=== PATIENT | male | born 1975 | race Asian ===

== ENCOUNTER 2016-07-25 13:27 | Outpatient (CLI) | payer OTHER ==
[~2016-07-25 13:27] MED LIST: ALIGN4 MG OR; AMOXICILLIN250 M2 PO; BIAXIN500 MG OR; METO50TA27 PO; PREVACID30 MG OR
[2016-07-25 14:01] LABS: PLATELET COUNT 228 K/uL (142-355)
[2016-07-25 14:41] LABS: POTASSIUM 3.7 mmol/L (3.6-5.2); SODIUM 140 mmol/L (136-145)
== END 2016-07-25 20:08 | disposition home or self-care (01) ==
LOC: LABW 13:27
PROVIDERS: Family Medicine
DX: R10.9 Unspecified abdominal pain (principal); E11.9 Type 2 diabetes mellitus without complications; K21.9 Gastro-esophageal reflux disease without esophagitis
CPT/HCPCS: 36415; 80053; 81000; 83036; 85027; 86318

== ENCOUNTER 2016-07-26 14:19 | Outpatient (CLI) | payer OTHER | END 2016-07-26 19:46 | disposition home or self-care (01) | LOC: US 14:19 | DX: R10.9 Unspecified abdominal pain (principal); E11.9 Type 2 diabetes mellitus without complications | CPT/HCPCS: 82272 ==

== ENCOUNTER 2016-10-12 22:07 | Emergency (ER) | payer OTHER ==
[~2016-10-12] VITALS: Ht 175.3 cm; Wt 104.3 kg
[2016-10-13 00:16] VITALS: BP 148/89; TEMP 99
== END 2016-10-13 00:16 | disposition home or self-care (01) ==
LOC: ED 22:07
DX: B34.9 Viral infection, unspecified (principal); A08.4 Viral intestinal infection, unspecified
CPT/HCPCS: 96372; 99283; J1885; J2550

== ENCOUNTER 2019-02-27 22:08 | Emergency (ER) | payer OTHER ==
[~2019-02-27] VITALS: Ht 175.3 cm; Wt 109.3 kg
[~2019-02-27 22:08] MED LIST changes: +RANI150T78 PO
[2019-02-27 23:54] VITALS: BP 136/75; TEMP 98.3
== END 2019-02-27 23:54 | disposition home or self-care (01) ==
LOC: ED 22:08
DX: S39.012A Strain of muscle, fascia and tendon of lower back, initial encounter (principal); S20.212A Contusion of left front wall of thorax, initial encounter; W18.39XA Other fall on same level, initial encounter; Y92.098 Other place in other non-institutional residence as the place of occurrence of the external cause
CPT/HCPCS: 96372; 99283; J1885

== ENCOUNTER 2020-02-11 13:33 | Emergency (ER) | payer OTHER ==
[~2020-02-11] VITALS: Ht 175.3 cm; Wt 108.0 kg
[2020-02-11] MEDS ORDERED: CARV3.12 PO (14:00)
[2020-02-11] MEDS ORDERED: OMEP40CA PO (14:01)
[2020-02-11 14:55] LABS: PLATELET COUNT 193 K/uL (142-355)
[2020-02-11 15:10] LABS: POTASSIUM 3.6 mmol/L (3.6-5.2); SODIUM 142 mmol/L (136-145)
[2020-02-11 15:14] LABS: PARTIAL THROMBOPLASTIN TIME 26.9 SECONDS (24.5-33.6)
[2020-02-11 16:45] VITALS: BP 137/73; TEMP 98.7
== END 2020-02-11 16:45 | disposition home or self-care (01) ==
LOC: ED 13:33
PROVIDERS: Family Medicine
DX: R00.1 Bradycardia, unspecified (principal); R07.89 Other chest pain; I10 Essential (primary) hypertension; K21.9 Gastro-esophageal reflux disease without esophagitis
CPT/HCPCS: 80053; 81000; 84484; 85027; 85379; 85610; 85730; 93005; 99283

== ENCOUNTER 2020-02-21 14:15 | Outpatient (CLI) | payer OTHER ==
[~2020-02-21 14:15] MED LIST changes: +CARV3.12 PO; +OMEP40CA PO
[2020-02-22] MEDS ORDERED: LISI10TA11 PO ×2 (05:07)
== END 2020-02-21 20:46 | disposition home or self-care (01) ==
LOC: US 14:15
DX: R10.31 Right lower quadrant pain (principal)

== ENCOUNTER 2020-02-21 14:55 | Observation (INO) | payer OTHER ==
[~2020-02-21] VITALS: Ht 175.3 cm; Wt 108.0 kg
[2020-02-21 15:00] VITALS: BP 129/74; TEMP 99.2
[2020-02-21 15:55] LABS: PLATELET COUNT 208 K/uL (142-355)
[2020-02-21 16:00] VITALS: BP 123/77
[2020-02-21 16:04] LABS: POTASSIUM 3.4 mmol/L (3.6-5.2)
[2020-02-21 17:00] VITALS: BP 133/86
[2020-02-21 18:28] VITALS: BP 144/84
[2020-02-21 22:41] VITALS: BP 150/74; TEMP 101.8; Ht 175.3 cm; Wt 108.0 kg
[2020-02-22 00:08] VITALS: BP 115/65; TEMP 98.8
[2020-02-22] MEDS ORDERED: LISI10TA11 PO ×2 (05:07)
[2020-02-22 05:51] LABS: PLATELET COUNT 189 K/uL (142-355)
[2020-02-22 06:02] LABS: POTASSIUM 4.2 mmol/L (3.6-5.2)
[2020-02-22 08:00] VITALS: BP 117/66; TEMP 98.9
[2020-02-22 12:00] VITALS: BP 122/68; TEMP 98
== END 2020-02-22 16:25 | disposition home or self-care (01) ==
LOC: ED 14:55 → MED/SURG 18:15
PROVIDERS: Family Medicine; ADMIT Family Medicine
DX: E86.0 Dehydration (principal); E87.6 Hypokalemia; E87.1 Hypo-osmolality and hyponatremia
CPT/HCPCS: 36415; 80053; 85027; 87502; 87651; 96360; 96365; 96366; 99220; 99284; G0378

== ENCOUNTER 2021-11-16 09:59 | Emergency (ER) | payer BC ==
[~2021-11-16] VITALS: Ht 175.3 cm; Wt 113.4 kg
[~2021-11-16 09:59] MED LIST changes: +LISI10TA11 PO
[2021-11-16 10:10] VITALS: TEMP 98.6
[2021-11-16 11:05] LABS: PLATELET COUNT 227 K/uL (142-355)
[2021-11-16 11:10] LABS: POTASSIUM 3.7 mmol/L (3.6-5.2)
[2021-11-16 13:05] VITALS: BP 140/82
== END 2021-11-16 13:05 | disposition home or self-care (01) ==
LOC: ED 09:59
PROVIDERS: Emergency Medicine
DX: N20.0 Calculus of kidney (principal)
CPT/HCPCS: 80053; 83690; 85027; 96360; 96375; 99284; J1885; Q9963

== ENCOUNTER 2022-02-06 15:04 | Emergency (ER) | payer BC ==
[~2022-02-06] VITALS: Ht 175.3 cm; Wt 113.4 kg
[2022-02-06 15:27] VITALS: TEMP 100.6
[2022-02-06 16:30] VITALS: BP 137/99
== END 2022-02-06 16:32 | disposition home or self-care (01) ==
LOC: ED 15:04
DX: U07.1 COVID-19 (principal); I10 Essential (primary) hypertension
CPT/HCPCS: 99282

== ENCOUNTER 2022-04-18 10:57 | Outpatient (CLI) | payer BC | END 2022-04-18 18:58 | disposition home or self-care (01) | LOC: RAD 10:57 | PROVIDERS: ATTEND Nurse Practitioner Family | DX: M25.552 Pain in left hip (principal); M25.551 Pain in right hip; M54.51 Vertebrogenic low back pain; M54.6 Pain in thoracic spine ==